=== PATIENT | male | born 2000 | race Two or more races ===

== ENCOUNTER 2022-06-29 15:22 | Emergency (ER) | payer SELFPAY ==
[~2022-06-29] VITALS: Ht 167.6 cm; Wt 61.7 kg
[2022-06-29 16:18] VITALS: BP 153/91
[2022-06-29] MEDS ORDERED: OXYMETAZOLINE HCL 0.05 % NASAL SPRAY 15ML EACHNOSTRI ONE (17:00)
[2022-06-29] MEDS ORDERED: METH4PAK PO (17:10)
== END 2022-06-29 17:31 | disposition home or self-care (01) ==
LOC: ER 15:25
DX: R04.0 Epistaxis (principal); R09.81 Nasal congestion